=== PATIENT | male | born 1950 | race Caucasian/White ===

== ENCOUNTER 2023-08-14 16:39 | Day surgery (SDC) | payer MEDICARE, OTHER, SELFPAY ==
[2023-08-14] VITALS (9 sets, daily range): BP systolic 93–130; BP diastolic 58–79; BMI 26.5
--- NOTE | 2023-08-14 09:04 | ED.GENMED ---
History of Present Illness
General
Chief Complaint: Abdominal Symptoms
Time Seen by Provider: 08/14/23 08:47
Travel History
Have you had any contact with someone who has COVID-19?: No
Do you have any symptoms of coronavirus? Fever > 100 degrees, chills, cough, shortness of breath, sore throat, loss of taste or smell, muscle aches, or headache?: No
History of Present Illness
History of Present Illness:
72-year-old male with history of hypertension presents the emergency department for evaluation of generalized lower abdominal discomfort and lack of bowel movement for the past 3 to 4 days. He is continuing to pass gas. He notes that he had
COVID-19 approximately 1 month ago in the immediate aftermath noted very hard and dark stools however this improved shortly thereafter. He denies any epigastric pain or hematochezia/vomiting. Denies any fevers or chills. Symptoms are reportedly
mild at this time. Has tried stool softeners and suppositories without benefit at home. Prior abdominal surgical history includes cholecystectomy
Review of Systems
Review of Systems
Allergies reviewed?: Yes
All Other Systems: ROS reviewed and negative except as documented in HPI and ROS
Phy Exam
Physical Exam
Physical Exam:
GEN: Well appearing, NAD, WDWN
Eyes: PERRLA, EOMs intact, no scleral icterus
HENT: NCAT, oral mucosa moist, no JVD, no cervical adenopathy.
Lungs: CTAB
Cardiac: RRR
Abdomen: S, NT, ND, NABS, no masses or hepatosplenomegaly
Rectal: Empty rectal vault, no stool
Neuro: AO x3
MSK: No gross deformity or ecchymosis. No edema. No digital clubbing
Skin: No rashes, petechiae. Normal color, no pallor or jaundice.
Psych: Calm, cooperative, proper hygiene
Course
Orders/Labs/Results
Orders:
Orders
08/14/23 09:23
Complete Blood Count/With Diff Urgent
Comprehensive Metabolic Panel Urgent
Urinalysis Reflex To Culture Urgent
Date Specimen was Collected: 08/14/23
Time Specimen was Collected: 09:05
08/14/23 09:59
CT Abd/Pel (IV only)-DH only Urgent
Comment:
Reason For Exam: lower abd pain, constipation
0.9% Sodium Chloride 1000 ml [Nss] 1,000 ml IV BOLUS
Morphine Sulfate 2 mg IV NOW STA
08/14/23 Lunch
NPO
Allow oral meds: No
Allow clear liquids: No
08/14/23 11:42
HYDROmorphone [Dilaudid] 0.5 mg IV NOW STA
08/14/23 15:15
0.9% Sodium Chloride 1000 ml [Nss] 1,000 ml IV BOLUS
Abnormal Lab Results
08/14/23
09:23
WBC 10.9 H 10^3/uL
(4.8-10.8)
RBC 4.25 L 10^6/uL
(4.70-6.10)
Hgb 12.8 L g/dL
(13.0-18.0)
Hct 37.3 L %
(39.0-52.0)
Absolute Neuts (auto) 8.6 H 10^3/uL
(1.4-6.5)
Absolute Monos (auto) 1.1 H 10^3/uL
(0.1-0.6)
Neutrophils % 78.2 H %
(42.2-75.2)
Lymphocytes % 10.8 L %
(20.5-51.1)
Monocytes % 9.6 H %
(1.7-9.3)
BUN 32 H mg/dl
(9-20)
Creatinine 1.8 H mg/dL
(0.7-1.3)
Glucose 119 H mg/dl
(70-99)
Total Protein 6.0 L g/dl
(6.3-8.2)
Albumin 3.4 L g/dl
(3.5-5.0)
08/14/23 09:23
08/14/23 09:23
Vital Signs
Initial and Last Documented VS:
Initial Vital Signs
Temp Pulse Resp BP Pulse Ox
99.1 F 84 16 123/75 98
08/14/23 08:22 08/14/23 08:22 08/14/23 08:22 08/14/23 08:22 08/14/23 08:22
Last Documented Vital Signs
Temp Pulse Resp BP Pulse Ox
99.1 F 84 16 129/70 97
08/14/23 08:22 08/14/23 08:22 08/14/23 08:22 08/14/23 15:00 08/14/23 15:25
MDM/Problems Addressed
MDM/Problems Addressed:
Interestingly the patient was found to have a large mid ureteral stone despite his pain presentation not been consistent with renal colic. No other alternative etiologies found. Given the patient's advanced age and sizable stone we discussed
admission to the hospital for pain control however after consultation with urology the plan will be for operative intervention later today with hopeful to discharge home thereafter. Will go to the OR directly from the emergency department
*Critical Care Note
Total Time (30-74mins, 75-104mins- exclusive of procedures): Not Applicable
ED Attending Note
-
Portions of this chart may have been created with voice recognition software.� Occasional wrong word or��sound alike� substitutions may have occurred due to the inherent limitations of voice recognition software.
Discharge Plan
Departure
Patient Disposition: OR
Date of Disposition: 08/14/23
Time of Disposition: 15:27
Presentation/result/management discussed w/ accepting MD/DO: Urology Dr Laughlin
Discharge Problem:
Ureterolithiasis
Referrals:
Moreno Carrillo MD [Family Provider] -
Interventions
Interventions:
*Risk Screen - Suicide Last Done: 08/14/23 09:30
*General Assessment Last Done: 08/14/23 09:30
*Neglect/Abuse Screening Last Done: 08/14/23 09:30
*ED COVID-19 Vaccine History Last Done: 08/14/23 08:22
OK-Fjfrdx-Danpcyexjo Assessment Last Done: 08/14/23 09:30
[2023-08-14 09:34] LABS: % Basophils 0.3 % (0-2); % Eosinophils 0.8 % (0-6); % Immature Granulocytes 0.3 % (0-0.5); % Lymphocytes 10.8 % (20.5-51.1); % Monocytes 9.6 % (1.7-9.3); % Neutrophils 78.2 % (42.2-75.2); Absolute Eosinophils 0.1 10^3/uL (0-0.7); Absolute Lymphocytes 1.2 10^3/uL (1.2-3.4); Absolute Monocytes 1.1 10^3/uL (0.1-0.6); Absolute Neutrophils 8.6 10^3/uL (1.4-6.5); Hematocrit 37.3 % (39.0-52.0); Hemoglobin 12.8 g/dL (13.0-18.0); Mean Corp Hgb Conc. 34.3 g/dL (33.0-37.0); Mean Corpuscular Hgb 30.1 pg (27.0-31.0); Mean Corpuscular Volume 87.8 fL (80.0-94.0); Mean Platelet Volume 8.9 fL (7.4-10.4); Nucleated Red Blood Cells % 0 % (-); Platelet Count 285 10^3/uL (130-400); Red Blood Cell Count 4.25 10^6/uL (4.70-6.10); Red Cell Dist. Width 12.4 % (11.5-14.5); Urine Albumin Negative (Neg - Trace); Urine Bilirubin Negative (Negative); Urine Character Clear (Clear); Urine Color Yellow; Urine Glucose Negative (Negative); Urine Ketone Negative (Negative); Urine Leukocyte Negative (Negative); Urine Nitrite Negative (Negative); Urine Occult Blood Negative (Negative); Urine Urobilinogen Negative (Neg - 1+); White Blood Cell Count 10.9 10^3/uL (4.8-10.8)
[2023-08-14 09:57] LABS: ALT (SGPT) 13 U/L (0-50); AST (SGOT) 17 U/L (17-59); Albumin 3.4 g/dl (3.5-5.0); Alkaline Phosphatase 66 U/L (38-126); Blood Urea Nitrogen 32 mg/dl (9-20); Calcium 9.6 mg/dl (8.4-10.2); Carbon Dioxide 29 mmol/L (22-30); Chloride 100 mmol/L (98-107); Estimated Creatinine Clearance 42 ml/min; Glucose 119 mg/dl (70-99); Sodium 135 mmol/L (135-145); Total Bilirubin 0.8 mg/dl (0.2-1.3); eGFR 39.01
[2023-08-14] MEDS: MORPHINE SULFATE 2 MG IV (10:23)
[2023-08-14] MEDS: NSS 1000 IV ×2 (10:24→15:27)
[2023-08-14] MEDS: DILAUDID 0.5 MG IV (11:59)
--- NOTE | 2023-08-14 16:50 | W.SUR.PREOP ---
Pre-Operative Surgical Note
-
I have examined this patient prior to the performance of the scheduled procedure.
The patient's condition is unchanged from the time of the current History and
Physical and the patient is able to undergo the scheduled procedure.
72M presents w/ intractable left renal colic - poorly controlled despite analgesics in ER.
CTAP w/o IV contrast =>
6.5 mm obstructing calculus in the mid left ureter associated with moderate left hydroureteronephrosis and perinephric edema
4 nonobstructing left-sided renal calculi measuring up to 4.5 mm
bilateral renal cysts
Reviewed risks, benefits, alternatives, and potential complications of URS/LL/stone extraction/stent placement including but not limited to urosepsis, bleeding, ureteral/bladder injury, need for additional procedures/surgeries.
Plan:
- Surgical consent signed
- To OR for cysto + left stent placement (possible URS/LL)
- IV Ancef 2g montessori paraprofessional to OR
D/w patient.
--- NOTE | 2023-08-14 17:18 | W.IMMPOSTOP ---
Surgical Immed Post Op Note
-
Primary Surgeon: Truman
Pre-op Diagnosis: NATALIE, obstructing left ureteral stone
Post-op Diagnosis: Same
Procedure Performed: cysto + left stent placement
Anesthesia Type: LMA
Specimen / Cultures: None/None
Estimated Blood Loss: Negligible
Drains: 6Fr x 26 cm JJ left ureteral stent
Complications: None
Operative Findings: see op note
[2023-08-14] MEDS: ANCEF 10 IV (17:43)
[2023-08-14] MEDS: Pyridium 200 MG PO (17:48)
[2023-08-14] MEDS: DETROL LA 2 MG PO (17:49)
== END 2023-08-14 19:32 | disposition home or self-care (01) ==
LOC: SDS 16:39
PROVIDERS: Physician Assistant; ATTENDING PHYSICIAN Surgery; EMERGENCY PHYSICIAN Emergency Medicine; FAMILY PHYSICIAN Internal Medicine Geriatric Medicine
DX: N20.0 Calculus of kidney (principal); N20.1 Calculus of ureter; N17.9 Acute kidney failure, unspecified
CPT/HCPCS: 52332; 74018; 74177; 76000; 80053; 81003; 85025; 96361; 96374; 96375; 99285; C2617; Q9967

== ENCOUNTER → 2023-09-05 14:36 | Outpatient (REF) | payer MEDICARE, OTHER, SELFPAY | LOC: CLAB 14:36 | PROVIDERS: ATTENDING PHYSICIAN Surgery | DX: N20.0 Calculus of kidney (principal) | CPT/HCPCS: 82365 ==

== ENCOUNTER → 2023-12-17 10:35 | Outpatient (REF) | payer MEDICARE, OTHER, SELFPAY | LOC: PAVMRI 10:35 | PROVIDERS: ATTENDING PHYSICIAN Physician Assistant Surgical; FAMILY PHYSICIAN Internal Medicine Geriatric Medicine | DX: M25.561 Pain in right knee (principal) | CPT/HCPCS: 73721 ==

== ENCOUNTER → 2024-01-08 14:52 | Outpatient (REF) | payer MEDICARE, OTHER, SELFPAY | LOC: HWRAD 14:52 | PROVIDERS: ATTENDING PHYSICIAN Internal Medicine Geriatric Medicine | DX: I10 Essential (primary) hypertension (principal); E78.2 Mixed hyperlipidemia | CPT/HCPCS: 75571 ==

== ENCOUNTER 2024-12-31 06:41 | Day surgery (SDC) | payer MEDICARE, OTHER, SELFPAY | END 2024-12-31 13:26 | disposition home or self-care (01) | LOC: GI 06:41 | PROVIDERS: ATTENDING PHYSICIAN Internal Medicine | DX: Z12.11 Encounter for screening for malignant neoplasm of colon (principal); N40.0 Benign prostatic hyperplasia without lower urinary tract symptoms; K57.30 Diverticulosis of large intestine without perforation or abscess without bleeding; D17.5 Benign lipomatous neoplasm of intra-abdominal organs; K63.5 Polyp of colon; K62.1 Rectal polyp; Z86.0100 Personal history of colon polyps, unspecified | CPT/HCPCS: 45380; 88305 ==

== ENCOUNTER → 2025-01-13 09:24 | Outpatient (REF) | payer MEDICARE, OTHER, SELFPAY | LOC: RAD 09:24 | PROVIDERS: ATTENDING PHYSICIAN Internal Medicine Geriatric Medicine | DX: R09.89 Other specified symptoms and signs involving the circulatory and respiratory systems (principal) | CPT/HCPCS: 93880 ==

== ENCOUNTER → 2025-02-18 15:40 | Outpatient (REF) | payer MEDICARE, OTHER, SELFPAY | LOC: RAD 15:40 | PROVIDERS: ATTENDING PHYSICIAN Internal Medicine Geriatric Medicine | DX: Z00.00 Encounter for general adult medical examination without abnormal findings (principal); I10 Essential (primary) hypertension; E78.2 Mixed hyperlipidemia; E55.9 Vitamin D deficiency, unspecified; M17.11 Unilateral primary osteoarthritis, right knee; R09.89 Other specified symptoms and signs involving the circulatory and respiratory systems; Z13.89 Encounter for screening for other disorder; Z86.73 Personal history of transient ischemic attack (TIA), and cerebral infarction without residual deficits | CPT/HCPCS: 70496; 70498; Q9967 ==